=== PATIENT | female | born 1965 | race Caucasian/White ===

== ENCOUNTER 2019-12-11 20:32 | Emergency (ER) | payer SELFPAY ==
[~2019-12-11] VITALS: Ht 185.4 cm; Wt 85.0 kg
[2019-12-11 20:34] VITALS: BP 176/107
--- NOTE | 2019-12-11 21:07 | NUR ---
PT LEFT BEFORE RECIEVING AND SIGNING DC PAPERWORK.
== END 2019-12-11 21:08 | disposition home or self-care (01) ==
LOC: ED 20:35
DX: G44.211 Episodic tension-type headache, intractable (principal); L04.2 Acute lymphadenitis of upper limb
CPT/HCPCS: 99281

== ENCOUNTER 2019-12-20 13:01 | Emergency (ER) | payer OTHER ==
[~2019-12-20] VITALS: Ht 185.4 cm; Wt 94.8 kg
[2019-12-20 13:15] VITALS: BP 157/82
--- NOTE | 2019-12-20 14:07 | NUR ---
PT REPORTS SHE HAS HAD A HEADACHE X3 WEEKS. PT REPORTS SHE WANTS A CT. VS STABLE. NO ACUTE DISTRESS NOTED. CALL LIGHT IN PLACE. WILL CONTINUE TO MONITOR.
--- NOTE | 2019-12-20 14:31 | NUR ---
TO JUAN CARLOS
--- NOTE | 2019-12-20 14:48 | NUR ---
PIV PLACED, IVF RUNNING. WAITING FOR MED ORDERS
--- NOTE | 2019-12-20 14:57 | NUR ---
PATIENT STATING "I NEED TO GO SEE MY DAUGHTER AND IN OTHER ROOM, I'M GONNA RIP THIS OUT IF YOU DON'T LET ME. I THINK YOU'RE MESSING WITH ME." PATIENT EDUCATED ON OTHER PARENT STAYING WITH CHILD DUE TO CHILD BEING A MINOR
[2019-12-20] MEDS ORDERED: SODIUM CHLORIDE FLUSH 10ML SYR IVF ONE (15:00)
[2019-12-20] MEDS ORDERED: SODIUM CHLORIDE 0.9% 1,000ML IVBOLUS ONE (15:00)
[2019-12-20] MEDS ORDERED: DIPHENHYDRAMINE 50 MG/ML, 1ML IVPush ONE (15:00)
[2019-12-20] MEDS ORDERED: METOCLOPRAMIDE 5 MG/ML, 2ML IVPush ONE (15:00)
[2019-12-20] MEDS ORDERED: DIPHENHYDRAMINE 50 MG/ML, 1ML ONE (15:00)
[2019-12-20] MEDS ORDERED: METOCLOPRAMIDE 5 MG/ML, 2ML ONE (15:00)
--- NOTE | 2019-12-20 15:00 | NUR ---
PATIENT REFUSED [employer]
--- NOTE | 2019-12-20 15:02 | NUR ---
PATIENT REFUSING MEDS AT THIS TIME, PATIENT STATES "I DON'T WANT MEDS, I DON'T WANT YOU KNOCKING ME OUT. GO AWAY AND LEAVE ME ALONE." PATIENT EDUCATED THAT MEDICATIONS WON'T "KNOCK HER OUT", PATIENT STILL REFUSING AND STATING "I NEED TO FIND MY FAMILY, LEAVE ME THE FUCK ALONE" PATIENT TRANSPORTED TO CT
[2019-12-20 15:06] LABS: BASOPHILS # (AUTO) 0.04 x10^3/uL (0-0.1); BASOPHILS % (AUTO) 0 % (0-1); EOSINOPHILS # (AUTO) 0.52 x10^3/uL (0-0.4); EOSINOPHILS % (AUTO) 6 % (1-7); LYMPHOCYTES # (AUTO) 2.99 x10^3/uL (1-3.4); LYMPHOCYTES % (AUTO) 32 % (22-44); MD NO; MEAN CORPUSCULAR HEMOGLOBIN 30.9 pg (27.0-34.8); MEAN CORPUSCULAR HGB CONC 33.1 g/dL (32.4-35.8); MEAN CORPUSCULAR VOLUME 93.4 fL (80-100); MEAN PLATELET VOLUME 8.7 fL (7.4-10.4); MONOCYTES # (AUTO) 0.72 x10^3/uL (0.2-0.8); MONOCYTES % (AUTO) 8 % (2-9); NEUTROPHILS # (AUTO) 5.02 x10^3/uL (1.8-6.8); NEUTROPHILS % (AUTO) 54 % (42-75); PLATELET COUNT 274 x10^3/uL (130-400); RED BLOOD COUNT 4.86 x10^6/uL (3.82-5.3); RED CELL DISTRIBUTION WIDTH 13.4 % (9.6-15.2)
--- NOTE | 2019-12-20 15:12 | NUR ---
PATIENT BACK FROM CT
[2019-12-20 15:16] LABS: ALBUMIN 3.5 g/dL (3.4-5.0); ANION GAP 5 mmol/L (5-15); CALCIUM 8.4 mg/dL (8.5-10.1); CHLORIDE 112 mmol/L (98-107); CREATININE 0.77 mg/dL (0.55-1.02)
[2019-12-20 15:20] LABS: TROPONIN I < 0.015 ng/mL (0.000-0.045)
--- NOTE | 2019-12-20 15:30 | NUR ---
PATIENT REFUSED VS, STATES "I JUST WANNA GO SEE MY FAMILY, PLEASE LEAVE ME ALONE"
--- NOTE | 2019-12-20 15:50 | NUR ---
PIV REMOVED. PATIENT THREATENING TO RIP IT OUT
--- NOTE | 2019-12-20 16:14 | NUR ---
GENERAL MATCHER: PT LEFT WITHOUT SPEAKING TO MD OR DISCHARGE INSTRUCTIONS
== END 2019-12-20 16:16 | disposition home or self-care (01) ==
LOC: ED 15:40
DX: G44.52 New daily persistent headache (NDPH) (principal)
CPT/HCPCS: 36415; 70450; 80048; 82040; 84484; 85025; 99284; J7030